=== PATIENT | female | born 1970 | race Caucasian/White ===

== ENCOUNTER 2025-02-11 19:44 | Emergency (ER) | payer BC ==
[~2025-02-11] VITALS: Ht 165.1 cm; Wt 108.6 kg
--- NOTE | 2025-02-11 20:07 | ELECTROCARDIOGRAPH REPORT ---
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 Bing Ba Measurements Intervals [place] Rate: 67 P: 39 NM: 116 QRS: 33 QRSD: 100 T: 39 QT: 437 QTc: 462 Interpretive Statements Sinus rhythm Borderline short NM interval Electronically Signed On 02-11-2025 22:09:[address] Bing Ba Please click the below link to view image of tracing.
[2025-02-11 20:22] LABS: MEAN PLATELET VOLUME 7.2 FL (7.4-10.4); RED CELL DISTRIBUTION WIDTH 13.6 % (11.5-14.5)
--- NOTE | 2025-02-11 20:28 | RADIOLOGY REPORT ---
CHEST RADIOGRAPH Indication: CP Technique: 1 view Comparison: None FINDINGS: Lines and Tubes: None Lungs: No focal consolidation. Pleura: No effusion or pneumothorax. Cardiomediastinal contours: Unremarkable. Other: No acute osseous abnormality. IMPRESSION: 1. No acute cardiopulmonary abnormality.
[2025-02-11 20:32] LABS: CREATININE 0.86 MG/DL (0.40-0.90); PRO BRAIN NATRIURETIC PEPTIDE 65 PG/ML (0-125); TOTAL CARBON DIOXIDE 20.4 MMOL/L (24-32); eCRCL 68 ML/MIN; eGFR 69 ML/MIN
[2025-02-11] MEDS: ondansetron/PF 4mg/2ml inj IV ONE (21:40)
[2025-02-11] MEDS: diazepam inj 5 MG/ML inj. IV ONE (22:13)
--- NOTE | 2025-02-12 00:14 | Physician Documentation ---
History of Present Illness ~ Chief Complaint: Chest Pain Stated Complaint: CP Time Seen by MD: 00:12 OK to notify your PCP?: Yes Source: patient, RN/MD, RN notes reviewed, old records Mode of Arrival: POV Exam Limitations: no limitations HPI 54 year old female presents to the emergency department for complaints of chest pain that began at 1700 today. She states that her pain is located in the left side of her chest and radiates into her shoulder and describes it as a pressure. She endorses nausea, vomiting, diarrhea and shortness of breath. She denies eating any bad foods or any recent sick exposure. She endorsed drinking Vodka yesterday. Of note patients was at bedside and stated that she has been drinking heavily for the past two days. Medication Reconciliation Allergies: Uncoded Allergies: PCN (Allergy, Mild, HIVES, 02/11/25) Past Medical History Past Medical History: No Pertinent History Past Surgical History: gastric bypass, other Smoking Status: Never smoker Alcohol Use: Occasionally Drug Use: none Review of Systems All Other Systems at this time: Reviewed and Negative ROS As stated above in the HPI, otherwise all systems are reviewed and negative. Physical Exam Vital Signs: RN Vital Signs have been reviewed: Yes, Temperature: 97.7, Source: Oral, Heart Rate: 75, Respiratory Rate: 21, BP: 170/95, Pulse Oximetry: 98, Weight: 108.600 Oxygen Flow Rate: 0 Pulse Oximetry Reflects: adequate oxygenation Physical Exam General: The patient uncomfortable appearing and clutching her chest. She is well developed, well nourished, nontoxic appearing and is in no acute distress. Skin: [place], warm and dry with no rashes. HEENT: Head was normocephalic and atraumatic. Eyes - pupils equal, round, reactive to light and accommodation. Extraocular movements were intact. Conjunctivae were nonicteric. Ears - bilateral tympanic membranes were normal. The mouth and oropharynx were clear with moist mucous membranes. There were no pharyngeal exudates or erythema. Neck: Supple and nontender. There was no jugular venous distention, lymphadenopathy, thyromegaly or masses. Chest: Clear to auscultation bilaterally without wheezes, rales or rhonchi. No accessory muscle use. No dullness to percussion. Heart: Rate regular and rhythmic. S1, S2. No murmurs. Palpation of the chest wall was normal. No rubs or thrills. Abdomen: Soft, nontender and nondistended. Positive bowel sounds. No guarding or rebound. No hepatosplenomegaly or palpable masses. Extremities: No cyanosis, clubbing or edema. The patient moves all extremities. Pulses were equal and symmetric. Neurologic: Cranial nerves II-XII were intact. Sensation was intact to light touch throughout. Motor strength was 5/5 in all four extremities. Deep tendon reflexes were intact in both upper and lower extremities. Psychologic: The patient was oriented to person, place and time. The patient demonstrated appropriate judgement and insight. Progress Results/Orders Reviewed/noted all lab results: Yes Results/Orders Orders - REAL MCCALL MD Chest,Single View (02/11/25 20:12) Monitor (02/11/25 20:05) Saline Lock (02/11/25 20:05) Oxygen (02/11/25 20:05) Electrocardiogram (02/11/25 20:05) Completed Orders - REAL MCCALL MD Chest,Single View (02/11/25 20:12) Cbc/Diff (02/11/25 20:05) BMP (02/11/25 20:05) PBNP (02/11/25 20:05) Electrocardiogram (02/11/25 20:05) Hs Troponin I W Calculations (02/11/25 20:05) Hs Troponin I W Calculations (02/11/25 22:05) Hs Troponin I W Calculations (02/11/25 23:05) Ondansetron Inj. (Zofran 4mg/2ml Vial) (02/11/25 21:25) Diazepam Inj (Valium Inj) (02/11/25 22:10) Drug Screen, Urine (02/12/25 00:13) Normal Saline 1000ml (0.9% Sodium Chlori (02/12/25 00:15) Normal Saline 1000ml (0.9% Sodium Chlori (02/12/25 00:20) Diazepam Inj (Valium Inj) (02/12/25 00:25) Magnesium Sulf-Water 2g/50ml (Magnesium (02/12/25 00:25) Potassium Cl 10meq/100ml Bag (Potassium (02/12/25 00:25) Metoclopramide Inj (Reglan Inj) (02/12/25 00:30) Morphine 2mg/Ml Inj. (Morphine Inj.) (02/12/25 00:30) Pantoprazole 40mg Iv (Protonix 40mg Iv) (02/12/25 00:30) Ethanol (02/11/25 19:54) Liver Panel (02/11/25 19:54) MG (02/11/25 19:54) Vital Signs 02/11/25 02/11/25 02/11/25 02/12/25 19:57 21:20 22:00 00:00 Temp 97.7 Pulse 69 75 68 Resp 20 14 21 23 B/P (MAP) 227/114 170/95 (120) 197/112 (140) Pulse Ox 99 98 98 O2 Flow Rate 0 02/12/25 02/12/25 02/12/25 02/12/25 01:00 01:47 02:00 02:42 Pulse 63 74 Resp 10 17 14 17 B/P (MAP) 182/105 (130) 195/102 (133) Pulse Ox 100 98 O2 Flow Rate 2.0 02/12/25 02/12/25 02/12/25 02/12/25 02:50 03:00 03:31 03:49 Temp 98.3 Pulse 74 80 Resp 15 13 14 14 B/P (MAP) 177/106 (129) 186/99 (128) Pulse Ox 98 100 02/12/25 03:56 Temp 98.3 Pulse 80 Resp 18 B/P (MAP) 186/99 Pulse Ox 100 Laboratory Tests Test 02/11/25 19:54 02/11/25 21:44 02/11/25 22:10 02/11/25 23:04 White Blood Count 7.8 Red Blood Count 5.41 Hemoglobin 15.9 Hematocrit 46.8 H Mean Corpuscular Volume 86.6 Mean Corpuscular Hemoglobin 29.4 Mean Corpuscular Hemoglobin Concent 34.0 Red Cell Distribution Width 13.6 Platelet Count 409 Mean Platelet Volume 7.2 L Neutrophils (%) (Auto) 70.0 Lymphocytes (%) (Auto) 23.4 Monocytes (%) (Auto) 4.4 Eosinophils (%) (Auto) 1.0 Basophils (%) (Auto) 1.2 H Neutrophils # (Auto) 5.5 Lymphocytes # (Auto) 1.8 Monocytes # (Auto) 0.3 Eosinophils # (Auto) 0.1 Basophils # (Auto) 0.1 CBC Comment Sodium Level 137 Potassium Level 3.2 L Chloride Level 101 Carbon Dioxide Level 20.4 L Anion Gap 16 Blood Urea Nitrogen 7 Creatinine 0.86 Estimated GFR/1.73 m2 69 BUN/Creatinine Ratio 8.1 L Glucose Level 154 H Calcium Level 8.9 Magnesium Level 1.8 Total Bilirubin 0.5 Direct Bilirubin 0.1 Aspartate Amino Transf (AST/SGOT) 23 Alanine Aminotransferase (ALT/SGPT) 39 Alkaline Phosphatase 105 Troponin I High Sensitivity 5 5 7 Pro-B-Type Natriuretic Peptide 65 Total Protein 8.6 H Albumin 4.2 Globulin 4.4 H Albumin/Globulin Ratio 1.0 L Chemistry Comments Ethyl Alcohol Level 61 H Troponin I High Sens Percent Delta 0 40 Troponin I Hi Sens Absolute Change 0 2 Urine Opiates Screen Negative Urine Methadone Screen Negative Urine Fentanyl Screen Negative Urine Barbiturates Screen Negative Urine Phencyclidine Screen Negative Urine Amphetamines Screen Negative Urine Benzodiazepines Screen Negative Urine Cocaine Screen Negative Urine Cannabinoids Screen Positive Drug Screen Comment Re-Evaluation Re-Evaluation : Re-Evaluation: Improved Progress Patient was seen and examined. Patient was given reassurance. Patient was complaining of some chest pain. Laboratory work was obtained. CBC is within normal limits. No signs of infection or anemia. Chemistry did show some low potassium at 3.2 some metabolic acidosis with a CO2 of 20.4 otherwise within normal limits glucose slightly elevated at 154. LFTs within normal limits and three troponins are negative. Alcohol is elevated at 61 tox screen is positive for marijuana. Otherwise within normal limits. Patient received Zofran as well as Valium. Later received fluid boluses and additional doses of Valium. Patient received some magnesium potassium supplementation complaining of some pain patient received morphine some Protonix as well as Reglan. Patient was vomiting as well. Patient was thought to have alcoholic gastritis. Patient was doing a bit better over time. After observation patient was then discharged home encouraged to drink less and given Protonix. Patient did not take his blood pressure medications and will take them at home. Continuous monitoring coordinator interpretation shows normal sinus rhythm heart rate 70s, no ectopy, normal, my interpretation. Pulse oximetry monitor interpretation shows normal oxygenation at 99% room air, normal my interpretation. 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 Real Mccall Measurements Intervals [place] Rate: 67 P: 39 SD: 116 QRS: 33 QRSD: 100 T: 39 QT: 437 QTc: 462 Interpretive Statements Sinus rhythm Borderline short SD interval Electronically Signed On 02-11-2025 22:09:[address] Real Mccall Please click the below link to view image of tracing. EKG Date and Time:02/11/251948 Electronically Signed by: REAL MCCALL MD Date and Time: 02/11/252208 Chest X-Ray : Additional Comments CHEST RADIOGRAPH Indication: CP Technique: 1 view Comparison: None FINDINGS: Lines and Tubes: None Lungs: No focal consolidation. Pleura: No effusion or pneumothorax. Cardiomediastinal contours: Unremarkable. Other: No acute osseous abnormality. IMPRESSION: 1. No acute cardiopulmonary abnormality. Electronically Signed by:ALEXA TILLEY MD Date & Time: 02/11/252025 Heart Score: Heart Score Response (Comments) Value History Moderate Suspicious 1 EKG Normal 0 Age 45-64 1 Risk Factors 1 or 2 risk factors 1 Troponin N/A 0 Total 3 Medical Decision Making Additional info obtained from: old records Differential Dx:Considerations: Include: angina, aortic dissection, chest wall pain, cholelithiasis, CHF, costochondritis, esophageal reflux/spasm, gastritis, herpes zoster, myocardial infarction, pericarditis, pleuritis, pancreatitis, pneumonia, pneumothorax, pulmonary embolus, other Departure Disposition: 01 HOME / SELF CARE / HOMELESS Impression: Primary Impression: Atypical chest pain Additional Impression: Alcoholic gastritis Qualified Codes: K29.20 - Alcoholic gastritis without bleeding Condition: Stable Discharge Instructions: Nonspecific Chest Pain, Adult Referrals: NO PRIMARY CARE PROVIDER (PCP) Education Educated: Patient Educated regarding: diagnosis, need for follow up, other Signature Scribe Signature: Scribed for Real Mccall MD by Joaquina Daigle . 02/12/25 00:37 Attestation: The note accurately reflects work and decisions made by me.Real Mccall MD 02/12/25 00:14 REAL MCCALL MD Feb 12, 2025 00:14 JOAQUINA COLLIER Feb 12, 2025 00:37
[2025-02-12] MEDS: normal saline 1000ML IV soln IVB ONE (00:23)
[2025-02-12] MEDS: normal saline 1000ml 1,000 ML IV ONE (00:41)
[2025-02-12] MEDS: diazepam inj 5 MG/ML inj. IV ONE (00:46)
[2025-02-12] MEDS: metoclopramide 5 mg/ml inj IV ONE (00:50)
[2025-02-12 00:53] LABS: ETHANOL 61 MG/DL (<10)
[2025-02-12 00:57] LABS: URINE AMPHETAMINE SCREEN NEGATIVE (Neg); URINE BARBITUATE SCREEN NEGATIVE (Neg); URINE BENZODIAZEPINES SCREEN NEGATIVE (Neg); URINE CANNABINOID SCREEN POSITIVE (Neg); URINE COCAINE SCREEN NEGATIVE (Neg); URINE METHADONE SCREEN NEGATIVE (Neg); URINE OPIATE SCREEN NEGATIVE (Neg); URINE PHENCYCLIDINE SCREEN NEGATIVE (Neg)
[2025-02-12] MEDS: magnesium sulf-water 2g/50mL 50 ML IV ONE (01:37)
[2025-02-12] MEDS: potassium CL 10mEq/100ml bag 100 ML IV ONE (01:37)
[2025-02-12 03:56] VITALS: BP 186/99; PULSE 80; RESP 18; TEMP 98.3; O2SAT 100
== END 2025-02-12 04:00 | disposition home or self-care (01) ==
LOC: ER 19:45
DX: R07.89 Other chest pain (principal); K29.20 Alcoholic gastritis without bleeding; Z98.84 Bariatric surgery status; Z79.899 Other long term (current) drug therapy
CPT/HCPCS: 36415; 71045; 80048; 80076; 80305; 80320; 83735; 83880; 84484; 85025; 93005; 96365; 96366; 96368; 96375; 96376; 99285; J2270; J2405; J2470; J2765; J3360; J3480; J7030; A4615